=== PATIENT | female | born 1970 | race Caucasian/White ===

== ENCOUNTER 2020-09-29 12:44 | Emergency (ER) | payer SELFPAY ==
[2020-09-29] MEDS ORDERED: Cephalexin 250 MG CAP ONE (13:48)
[2020-09-29] MEDS ORDERED: Clindamycin 150 MG CAP ONE (13:52)
== END 2020-09-29 15:11 | disposition home or self-care (01) ==
LOC: NAV ERS 12:44
DX: L03.115 Cellulitis of right lower limb (principal); S80.811A Abrasion, right lower leg, initial encounter; F17.210 Nicotine dependence, cigarettes, uncomplicated; Z86.73 Personal history of transient ischemic attack (TIA), and cerebral infarction without residual deficits; Z79.82 Long term (current) use of aspirin; Z79.02 Long term (current) use of antithrombotics/antiplatelets; Z79.899 Other long term (current) drug therapy; Y04.2XXA Assault by strike against or bumped into by another person, initial encounter

== ENCOUNTER 2020-10-08 11:59 | Emergency (ER) | payer SELFPAY ==
[2020-10-08] MEDS ORDERED: Lidocaine 1% w/Epinephrine 1:100K 20 ML VIAL ONE (13:19)
[2020-10-08] MEDS ORDERED: cefTRIAXone\\ROCEPHIN 1 GM VIAL ONE ×2 (13:19→13:29)
[2020-10-08] MEDS ORDERED: Lidocaine 1% (PF) 30 ML VIAL ONE (13:20)
== END 2020-10-08 13:48 | disposition home or self-care (01) ==
LOC: NAV ERS 11:59
DX: M79.604 Pain in right leg (principal)
CPT/HCPCS: 96372; 99283; J0696; J2001